=== PATIENT | male | born 1985 | race Two or more races ===

== ENCOUNTER 2017-11-04 12:10 | Emergency (ER) | payer OTHER | END 2017-11-04 15:29 | disposition home or self-care (01) | LOC: M ED 12:10 | DX: S01.422A Laceration with foreign body of left cheek and temporomandibular area, initial encounter (principal); T14.8XXA Other injury of unspecified body region, initial encounter; M27.9 Disease of jaws, unspecified; V43.52XA Car driver injured in collision with other type car in traffic accident, initial encounter; Y92.410 Unspecified street and highway as the place of occurrence of the external cause | CPT/HCPCS: 70450 ==

== ENCOUNTER → 2022-08-04 | Outpatient (CLI) | payer BC ==
[~2022-08-04] MED LIST: AUGM875T28 PO; IBUP-1022 PO
== END ==
LOC: M LAB 10:03
PROVIDERS: ATTEND Internal Medicine Endocrinology, Diabetes & Metabolism
DX: E05.00 Thyrotoxicosis with diffuse goiter without thyrotoxic crisis or storm (principal)

== ENCOUNTER → 2022-08-31 | Outpatient (CLI) | payer BC | LOC: M RAD 11:30 | PROVIDERS: ATTEND Internal Medicine Endocrinology, Diabetes & Metabolism | DX: E05.00 Thyrotoxicosis with diffuse goiter without thyrotoxic crisis or storm (principal) | CPT/HCPCS: 78012; A9516 ==

== ENCOUNTER → 2022-09-17 | Outpatient (CLI) | payer BC | LOC: M RAD 08:06 | PROVIDERS: ATTEND Internal Medicine Endocrinology, Diabetes & Metabolism | DX: E05.00 Thyrotoxicosis with diffuse goiter without thyrotoxic crisis or storm (principal) | CPT/HCPCS: 79005; A9517 ==